=== PATIENT | male | born 1950 | race Caucasian/White ===

== ENCOUNTER → 2017-01-20 | Outpatient (CLI) | payer OTHER ==
[~2017-01-20] MED LIST: ASPI81TA28 PO; GLC/500 PO; LOSA1TAB38 PO; LPT40 PO; METO50TA16 PO; MONT1TAB5 PO; NTRSL3 UT
[2017-01-20 11:48] LABS: HEMATOCRIT 37.8 % (42-52); MEAN CELL VOLUME 92.9 fL (80-100); MEAN CORPUSCULAR HEMOGLOBIN 30.2 pg (25-34); MEAN CORPUSCULAR HGB CONC 32.5 g/dl (32-36); MEAN PLATELET VOLUME 10.9 fL (7.4-10.4); PLATELET COUNT 263 K/uL (130-400); RED BLOOD COUNT 4.07 M/uL (4.7-6.1); WHITE BLOOD COUNT 10.24 K/uL (4.8-10.8)
[2017-01-20 12:01] LABS: ALT/SGPT 27 U/L (12-78); AST/SGOT 24 U/L (15-37); BLOOD UREA NITROGEN 23 mg/dl (7-18); BUN/CREATININE RATIO 18.9 (10-20); CALCIUM 8.9 mg/dl (8.5-10.1); CARBON DIOXIDE 27 mmol/L (21-32); CHLORIDE 104 mmol/L (98-107); GLUCOSE 152 mg/dl (70-99); POTASSIUM 5.1 mmol/L (3.5-5.1); SODIUM 137 mmol/L (136-145)
== END | disposition home or self-care (01) ==
LOC: C.LABPBG 08:45
PROVIDERS: ATTEND Internal Medicine Cardiovascular Disease
DX: E78.5 Hyperlipidemia, unspecified (principal); E66.9 Obesity, unspecified; I10 Essential (primary) hypertension; I25.119 Atherosclerotic heart disease of native coronary artery with unspecified angina pectoris

== ENCOUNTER → 2017-11-13 | Outpatient (CLI) | payer OTHER ==
[~2017-11-13] MED LIST changes: +ADVIN25/60 INH; +ISOS120T5 PO; -MONT1TAB5 PO; +RANO1000 PO; +[UNRECOGNIZED DRUG - CODE] INH
[2017-11-13 13:44] LABS: HEMOGLOBIN 9.2 g/dL (14.0-18.0); MEAN CELL VOLUME 90.6 fL (80-100); MEAN CORPUSCULAR HEMOGLOBIN 28.8 pg (25-34); MEAN CORPUSCULAR HGB CONC 31.7 g/dl (32-36); MEAN PLATELET VOLUME 9.2 fL (7.4-10.4); PLATELET COUNT 561 K/uL (130-400); WHITE BLOOD COUNT 16.32 K/uL (4.8-10.8)
[2017-11-13 14:19] LABS: BLOOD UREA NITROGEN 10 mg/dl (7-18); CALCIUM 9.3 mg/dl (8.5-10.1); CARBON DIOXIDE 29 mmol/L (21-32); CREATININE 1.13 mg/dl (0.60-1.40); GLUCOSE 134 mg/dl (70-99); POTASSIUM 4.3 mmol/L (3.5-5.1); SODIUM 136 mmol/L (136-145)
== END | disposition home or self-care (01) ==
LOC: C.LAB1850 12:35
PROVIDERS: ATTEND Internal Medicine Cardiovascular Disease
DX: I10 Essential (primary) hypertension (principal); I25.10 Atherosclerotic heart disease of native coronary artery without angina pectoris; I97.89 Other postprocedural complications and disorders of the circulatory system, not elsewhere classified; E87.70 Fluid overload, unspecified

== ENCOUNTER → 2017-11-20 | Outpatient (CLI) | payer OTHER ==
[2017-11-20 12:53] LABS: BLOOD UREA NITROGEN 13 mg/dl (7-18); CARBON DIOXIDE 29 mmol/L (21-32); GLUCOSE 143 mg/dl (70-99); POTASSIUM 3.9 mmol/L (3.5-5.1); SODIUM 132 mmol/L (136-145)
== END | disposition home or self-care (01) ==
LOC: C.LAB1850 10:36
PROVIDERS: ATTEND Internal Medicine Cardiovascular Disease
DX: I25.10 Atherosclerotic heart disease of native coronary artery without angina pectoris (principal); E87.70 Fluid overload, unspecified

== ENCOUNTER → 2017-12-04 | Outpatient (CLI) | payer OTHER ==
[2017-12-04 17:16] LABS: BASO % 0.6 %; BASO ABS # 0.07 K/uL (0-0.2); EOS % 9.4 %; EOS ABS # 1.12 K/uL (0-0.5); HEMATOCRIT 35.4 % (42-52); HEMOGLOBIN 11.3 g/dL (14.0-18.0); IG# 0.07 K/uL (0.00-0.02); LYMPH % 17.1 %; LYMPH ABS # 2.03 K/uL (1.2-3.4); MEAN CELL VOLUME 90.1 fL (80-100); MEAN CORPUSCULAR HEMOGLOBIN 28.8 pg (25-34); MEAN CORPUSCULAR HGB CONC 31.9 g/dl (32-36); MEAN PLATELET VOLUME 10.2 fL (7.4-10.4); MONO % 7.3 %; MONO ABS # 0.87 K/uL (0.11-0.59); NEUT ABS # 7.71 K/uL (1.4-6.5); PLATELET COUNT 361 K/uL (130-400); RED CELL DISTRIBUTION WIDTH CV 15.2 % (11.5-14.5); RED CELL DISTRIBUTION WIDTH SD 49.8 fL (36.4-46.3); WHITE BLOOD COUNT 11.87 K/uL (4.8-10.8)
[2017-12-04 17:37] LABS: BLOOD UREA NITROGEN 16 mg/dl (7-18); CALCIUM 9.1 mg/dl (8.5-10.1); CARBON DIOXIDE 29 mmol/L (21-32); CREATININE 1.42 mg/dl (0.60-1.40); GLUCOSE 133 mg/dl (70-99); POTASSIUM 3.9 mmol/L (3.5-5.1); SODIUM 135 mmol/L (136-145)
== END | disposition home or self-care (01) ==
LOC: C.LABPBG 13:45
PROVIDERS: ATTEND Physician Assistant
DX: I10 Essential (primary) hypertension (principal); E87.70 Fluid overload, unspecified; I25.10 Atherosclerotic heart disease of native coronary artery without angina pectoris

== ENCOUNTER → 2017-12-18 | Outpatient (CLI) | payer OTHER ==
[2017-12-18 13:26] LABS: BLOOD UREA NITROGEN 10 mg/dl (7-18); CALCIUM 8.9 mg/dl (8.5-10.1); CARBON DIOXIDE 26 mmol/L (21-32); CREATININE 1.08 mg/dl (0.60-1.40); GLUCOSE 233 mg/dl (70-99); POTASSIUM 4.6 mmol/L (3.5-5.1); SODIUM 135 mmol/L (136-145)
== END | disposition home or self-care (01) ==
LOC: C.LABPBG 08:52
PROVIDERS: ATTEND Physician Assistant
DX: I10 Essential (primary) hypertension (principal)

== ENCOUNTER 2021-03-23 06:47 | Inpatient (IN) ==
--- NOTE | 2021-02-04 13:33 | PAT Medication Instructions ---
Medication Instructions Date of Service February 04, 2021 Home Medications Medication Instructions Recorded nitroglycerin 0.4 mg sublingual 0.4 mg SUBLINGUAL DIRECTED PRN 01/02/19 tablet #30 tab famotidine 20 mg tablet 20 mg PO BID #180 tab 07/20/20 lancets 33 gauge (Flora Hernandez #100 ea 08/03/20 Lancets) atorvastatin 80 mg tablet 80 mg PO HS #90 tab 08/26/20 furosemide 40 mg tablet 40 mg PO BID #180 tab 08/26/20 potassium chloride 10 mEq 10 meq PO QAM #90 tab 08/26/20 tablet,extended release metoprolol tartrate 50 mg tablet 50 mg PO BID #180 tab 08/31/20 metformin 1,000 mg tablet 1,000 mg PO BID #180 tab 09/22/20 tramadol 50 mg tablet 50 mg PO Q8H PRN #30 tab 01/12/21 blood sugar diagnostic #100 ea 01/28/21 semaglutide (Ozempic) 0.5 mg SUBCUT .weekly #1.5 ml 02/03/21 multivitamin 1 tab PO QAM acetaminophen 500 mg tablet 1,000 mg PO Q4H PRN aspirin 81 mg tablet,delayed release 81 mg PO QAM nitroglycerin 0.4 mg sublingual tablet 0.4 mg SUBLINGUAL DIRECTED PRN famotidine 20 mg tablet 20 mg PO BID atorvastatin 80 mg tablet 80 mg PO HS furosemide 40 mg tablet 40 mg PO BID potassium chloride 10 mEq tablet,extended release 10 meq PO QAM metoprolol tartrate 50 mg tablet 50 mg PO BID metformin 1,000 mg tablet 1,000 mg PO BID tramadol 50 mg tablet 50 mg PO Q8H PRN diclofenac sodium 1 % topical gel 4 g TOP BID PRN glimepiride 4 mg tablet 4 mg PO QAM semaglutide (Ozempic) 0.5 mg SUBCUT .weekly Continue as directed semaglutide (Ozempic) 0.5 mg SUBCUT .weekly nitroglycerin 0.4 mg sublingual tablet 0.4 mg SUBLINGUAL DIRECTED PRN (if needed) ASK your prescriber and surgeon aspirin 81 mg tablet,delayed release 81 mg PO QAM STOP taking 24 hours before surgery diclofenac sodium 1 % topical gel 4 g TOP BID PRN DO NOT take the morning of surgery multivitamin 1 tab PO QAM famotidine 20 mg tablet 20 mg PO BID furosemide 40 mg tablet 40 mg PO BID potassium chloride 10 mEq tablet,extended release 10 meq PO QAM metformin 1,000 mg tablet 1,000 mg PO BID glimepiride 4 mg tablet 4 mg PO QAM Take morning of surgery With a small sip of water, OTHERWISE NOTHING TO EAT OR DRINK AFTER MIDNIGHT: acetaminophen 500 mg tablet 1,000 mg PO Q4H PRN (okay to take up to 4 hours prior to surgery if needed) metoprolol tartrate 50 mg tablet 50 mg PO BID tramadol 50 mg tablet 50 mg PO Q8H PRN (okay to take up to 4 hours prior to surgery if needed) Take evening before surgery acetaminophen 500 mg tablet 1,000 mg PO Q4H PRN (if needed) famotidine 20 mg tablet 20 mg PO BID atorvastatin 80 mg tablet 80 mg PO HS furosemide 40 mg tablet 40 mg PO BID metoprolol tartrate 50 mg tablet 50 mg PO BID metformin 1,000 mg tablet 1,000 mg PO BID tramadol 50 mg tablet 50 mg PO Q8H PRN (if needed) Other Notes If you have any questions please call us at [phone] or [phone] or [phone] or [phone]
--- NOTE | 2021-02-08 08:29 | Anesthesiology Consultation ---
Date of Service February 08, 2021 Assessment & Plan (1) Encounter for pre-operative examination: - COVID screening: Per assessment on 02/08: Travel screen negative, no known COVID-19 positive contacts or current COVID-19 related symptoms. Patient vacc inated. Surgeon arranging preop COVID testing. Awaiting results. - Check BSG AM DOS Chart Review Chart Review: Acceptable Risk for Surgery (pending surgeon-ordered PCP and cardiology preop evaluations) and Patient seen in Pre Admission Testing Teaching & Discussion Pre-Anesthesia Teaching/Discussion Notes: Instructed NPO after midnight before surgery,except medications with 15 cc of water. Medication instructions provided according to the PAT guidelines. History Surgery Operation Date: 03/01/21 07:45 Proposed Procedures p L4-S1 Decompression Fusion; SPINAL CORD MONITORING - Zeeshan Elizabeth DO Height/Weight Height: 5 ft 4 in Weight: 114.2 kg Allergies Allergy/AdvReac Type Severity Reaction Status Date / Time MARK Inhibitors Allergy Mild Cough Verified 02/02/21 10:54 Medications Home Medications Medication Instructions Recorded Confirmed Last Taken multivitamin 1 tab PO QAM 05/06/18 02/02/21 10/15/19 acetaminophen 500 mg tablet 1,000 mg PO Q4H PRN tab 12/31/18 02/02/21 02/19/19 aspirin 81 mg tablet,delayed 81 mg PO QAM tab 12/31/18 02/02/21 10/15/19 release nitroglycerin 0.4 mg sublingual 0.4 mg SUBLINGUAL DIRECTED PRN 01/02/19 02/02/21 Unknown tablet #30 tab famotidine 20 mg tablet 20 mg PO BID #180 tab 07/20/20 02/02/21 Unknown lancets 33 gauge (OneTouch Delica #100 ea 08/03/20 01/12/21 Unknown Lancets) atorvastatin 80 mg tablet 80 mg PO HS #90 tab 08/26/20 02/02/21 Unknown furosemide 40 mg tablet 40 mg PO BID #180 tab 08/26/20 02/02/21 Unknown potassium chloride 10 mEq 10 meq PO QAM #90 tab 08/26/20 02/02/21 Unknown tablet,extended release metoprolol tartrate 50 mg tablet 50 mg PO BID #180 tab 08/31/20 02/02/21 Unknown metformin 1,000 mg tablet 1,000 mg PO BID #180 tab 09/22/20 02/02/21 Unknown tramadol 50 mg tablet 50 mg PO Q8H PRN #30 tab 01/12/21 02/02/21 Unknown blood sugar diagnostic #100 ea 01/28/21 Unknown diclofenac sodium 1 % topical gel 4 g TOP BID PRN 02/02/21 02/02/21 Unknown glimepiride 4 mg tablet 4 mg PO QAM 02/02/21 02/02/21 Unknown semaglutide (Ozempic) 0.5 mg SUBCUT .weekly #1.5 ml 02/03/21 Unknown Past Medical History Medical History Anemia Chronic with baseline hgb 11-12 range per chart review Asthma No inhaler/recent issues CAD in [place] artery S/P CABG x2 (2018) Follows with cardiology (Dr. Romo) Chronic diastolic congestive heart failure Diabetes mellitus Diverticulosis Dyslipidemia Gastroesophageal reflux Hypertension Morbid obesity with BMI of 40.0-44.9, adult Postoperative atrial fibrillation S/P CABG (2018) Sleep apnea No device Exercise / Class Metabolic Activity III < 4 Walking/Shop/Light housework (Reports No CP or SOB with 1 FS but does indicate decreased activity in setting of worsening back pain) Past Family History Family History Father Diabetes Coronary heart disease Heart disease Myocardial infarction Hypertension Cancer Mother Diabetes Coronary heart disease Dementia Heart disease Myocardial infarction Hypertension Cancer Brother Prostate cancer Bladder cancer Daughter Ovarian cancer 2 daughters Other No family history of adverse response to anesthesia Denies family history of Breast cancer Colorectal cancer Past Surgical History Surgical History History of cardiac cath x2 > no stents, CABG x2 (2018) History of colonoscopy with polypectomy History of coronary artery bypass graft x 2 2018 ([facility]) History of tooth extraction S/P cholecystectomy Past Anesthesia History No Hx of Anesthesia Complications and No Family Hx of Anesthesia Complications History of PONV No Hx of PONV and No Hx of Motion Sickness Social History Smoking Status: Never smoker Do You Dip or Chew Tobacco: No Hx Alcohol Use: No Hx Substance Use: No substance use type: does not use Review of Systems Patient denies chest pain, shortness of breath, dyspnea on exertion, fever, chills, cough, wheezing, palpitations. Physical Exam Vital Signs VITALS BP 136/79 P 70 TEMP 98.1 SP02 97%RA RESP 16 PHYSICAL Full cervical extension range of motion. Full TMJ range of motion. TMD 4 finger breaths Mallampati Score 3 Dentition: edentulous Lungs: clear throughout to auscultation Cardiac: regular rate and rhythm, no murmurs noted, distant heart sounds Spine: normal Carotid arteries: negative bruit Extremities: no edema Short, thick neck Lab Results Anesthesia Preop Results Results Anesthesia Widget: WBC 10.61 K/uL (4.8-10.8) 02/08/21 Hgb 12.9 g/dL (14.0-18.0) L 02/08/21 Hct 39.1 % (42-52) L 02/08/21 Plt 307 K/uL (130-400) 02/08/21 Na 137 mmol/L (136-145) 02/08/21 K 3.8 mmol/L (3.5-5.1) 02/08/21 Cl 101 mmol/L (98-107) 02/08/21 CO2 27 mmol/L (21-32) 02/08/21 BUN 15 mg/dl (7-18) 02/08/21 Creat 1.19 mg/dl (0.6-1.4) 02/08/21 Glucose Level 181 mg/dl (70-99) H 02/08/21 PT 10.6 Seconds (9.0-12.0) 02/08/21 PTT 25.9 Seconds (21.0-31.0) 02/08/21 INR 1.0 (0.9-1.1) 02/08/21 Urine Color Yellow 02/08/21 Urine Appearance Clear (Clear) 02/08/21 Urine pH 8.0 (4.5-7.5) H 02/08/21 Urine Specific [place] 1.015 (1.000-1.030) 02/08/21 Urine Protein Negative (Negative) 02/08/21 Urine Glucose (UA) Trace (Negative) H 02/08/21 Urine Ketones Negative (Negative) 02/08/21 Urine Blood Negative (Negative) 02/08/21 Urine Nitrite Negative (Negative) 02/08/21 Urine Bilirubin Negative (Negative) 02/08/21 Urine Urobilinogen Negative (Negative) 02/08/21 Urine Leukocyte Esterase Negative (Negative) 02/08/21 Blood Type O Positive 02/08/21 Antibody Screen NEGATIVE 02/08/21 Testing Laboratory Results 10/22/20 HGBA1C 7.3% Electrocardiogram Date: 02/08/21 NSR at 71bpm. unconfirmed report. Chest X-Ray Date: 02/08/21 FINDINGS: Mediastinal wires are noted. Cardiomegaly is unchanged. There is no evidence for pulmonary edema. No pneumothorax or pleural effusion is noted. There is no consolidation. The appearance of the chest is unchanged. IMPRESSION: No acute cardiopulmonary findings. Cardiomegaly.
[~2021-03-23 06:47] MED LIST changes: +ACETAMINOPHEN 500 MG TAB PO SCH; -ADVIN25/60 INH; -ASPI81TA28 PO; +CeleBREX 200 MG CAP PO SCH; +GABAPENTIN 300 MG CAP PO SCH; -GLC/500 PO; -ISOS120T5 PO; -LOSA1TAB38 PO; -LPT40 PO; +LR 15ML/HR IV SCH; -METO50TA16 PO; -NTRSL3 UT; -RANO1000 PO; -[UNRECOGNIZED DRUG - CODE] INH
[2021-03-23] MEDS ORDERED: ONDANSETRON INJ 2 MG/ML 2 ML VIAL ONE (10:12)
[2021-03-23] MEDS ORDERED: fentaNYL citrate 100 MCG/2 ML VIAL ONE ×2 (10:12→13:07)
[2021-03-23] MEDS ORDERED: PROPOFOL IV EMULSION 10 MG/ML 20 ML VIAL IV ONE (10:12)
[2021-03-23] MEDS ORDERED: LIDOCAINE 2% 2 ML VIAL/AMP(20MG/ML) INFIL ONE (10:12)
[2021-03-23] MEDS ORDERED: MIDAZOLAM HCL 1 MG/ML 2ML VIAL ONE (10:12)
[2021-03-23] MEDS ORDERED: ONDANSETRON INJ 2 MG/ML 2 ML VIAL IV PRN ×2 (10:16→15:14)
[2021-03-23] MEDS ORDERED: ePHEDrine sulfate 50 MG/ML AMP IV PRN (10:16)
[2021-03-23] MEDS ORDERED: fentaNYL citrate 100 MCG/2 ML VIAL IV PRN (10:16)
[2021-03-23] MEDS ORDERED: ATROPINE SULFATE 0.1 MG/ML 10ML SYR IV PRN (10:16)
[2021-03-23] MEDS ORDERED: PROMETHAZINE HCL 6.25 MG in SODIUM CHLORIDE 0.9% 50 ML IV PRN (10:16)
[2021-03-23] MEDS ORDERED: HYDROmorphone INJ 2 MG/ML SYR/VIAL IV PRN (10:16)
--- NOTE | 2021-03-23 10:52 | History & Physical Bridge Note ---
Date of Service March 23, 2021 History & Physical Bridge Note I have examined the patient, reviewed the History & Physical and in the interval since the performance of the History & Physical I have noted the following changes of clinical significance: no changes noted
--- NOTE | 2021-03-23 10:53 | History & Physical Report ---
Date of Service March 23, 2021 Assessment & Plan (1) Lumbar spinal stenosis: Plan: L4-S1 decompression fusion History of Present Illness Chief Complaint: Back and bilateral leg pain Primary Care Provider: Katlin Preston DO This is a 70-year-old male presents with marked decline in status with chronic persistent back and bilateral leg pain. Failing course of nonoperative care is here for surgical intervention. Allergies Allergy/AdvReac Type Severity Reaction Status Date / Time MARK Inhibitors Allergy Mild Cough Verified 03/23/21 07:38 Home Medications Medication Instructions Recorded Confirmed Type multivitamin 1 tab PO QAM 05/06/18 03/23/21 History acetaminophen 500 mg tablet 1,000 mg PO Q4H PRN tab 12/31/18 03/23/21 History aspirin 81 mg tablet,delayed 81 mg PO QAM tab 12/31/18 03/23/21 History release nitroglycerin 0.4 mg sublingual 0.4 mg SUBLINGUAL DIRECTED PRN 01/02/19 03/23/21 Rx tablet #30 tab famotidine 20 mg tablet 20 mg PO BID #180 tab 07/20/20 03/23/21 Rx lancets 33 gauge (OneTouch Delica #100 ea 08/03/20 02/12/21 Rx Lancets) atorvastatin 80 mg tablet 80 mg PO HS #90 tab 08/26/20 03/23/21 Rx furosemide 40 mg tablet 40 mg PO BID #180 tab 08/26/20 03/23/21 Rx potassium chloride 10 mEq 10 meq PO QAM #90 tab 08/26/20 03/23/21 Rx tablet,extended release metoprolol tartrate 50 mg tablet 50 mg PO BID #180 tab 08/31/20 03/23/21 Rx metformin 1,000 mg tablet 1,000 mg PO BID #180 tab 09/22/20 03/23/21 Rx blood sugar diagnostic #100 ea 01/28/21 02/12/21 Rx diclofenac sodium 1 % topical gel 4 g TOP BID PRN 02/02/21 03/23/21 History glimepiride 4 mg tablet 4 mg PO QAM 02/02/21 03/23/21 History semaglutide (Ozempic) 0.5 mg SUBCUT .weekly #1.5 ml 02/03/21 03/23/21 Rx tramadol 50 mg tablet 50 mg PO Q8H PRN #30 tab 03/09/21 03/23/21 Rx Past Med/Surg History Medical History Anemia Asthma CAD in [place] artery Chronic diastolic congestive heart failure Diabetes mellitus Diverticulosis Dyslipidemia Gastroesophageal reflux History of colon polyps Hypertension Lumbar spinal stenosis Morbid obesity with BMI of 40.0-44.9, adult Postoperative atrial fibrillation Sleep apnea Surgical History History of cardiac cath History of colonoscopy with polypectomy History of coronary artery bypass graft x 2 (2018) History of tooth extraction S/P cholecystectomy Family History Father Diabetes Coronary heart disease Heart disease Myocardial infarction Hypertension Cancer Mother Diabetes Coronary heart disease Dementia Heart disease Myocardial infarction Hypertension Cancer Brother Prostate cancer Bladder cancer Daughter Ovarian cancer Other No family history of adverse response to anesthesia Denies family history of Breast cancer Colorectal cancer Social History Smoking Status: Never smoker Second Hand Exposure: Yes (work environment); Do You Dip or Chew Tobacco: No; Hx Alcohol Use: No Hx Substance Use: No Preferred Language: Luxembourgish Communication Ability: Effective Visual Impairment: No Limitations Hearing Ability: Hard of Hearing Back Feeder Plywood Layup Line Required: No Beliefs That Will Affect Care: None marital status: Current Living Situation: Spouse current occupational status: retired current occupation: Retired; 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) Vital Signs (Past 12 Hours) Vital Signs Temp Pulse Resp BP Pulse Ox 03/23/21 07:52 36.8 C 76 20 120/63 95
[2021-03-23] MEDS ORDERED: BUPIVACAINE 0.5 % 5 MG/1 ML MPF 30ML VIAL ONE (10:59)
[2021-03-23] MEDS ORDERED: EPINEPHrine INJ 1 MG/ML AMP ONE (10:59)
[2021-03-23] MEDS ORDERED: SUGAMMADEX SODIUM 200 MG/2 ML VIAL IV ONE (12:13)
[2021-03-23] MEDS ORDERED: SUCCINYLCHOLINE CHLORIDE 20 MG/ML 10 ML VIAL IV ONE (12:13)
[2021-03-23] MEDS ORDERED: ROCURONIUM BROMIDE 10 MG/ML 5 ML VIAL IV ONE (12:13)
[2021-03-23] MEDS ORDERED: DEXAMETHASONE SOD INJ 4 MG/ML VIAL ONE (12:24)
[2021-03-23] MEDS ORDERED: ePHEDrine sulfate 50 MG/ML AMP ONE (12:24)
[2021-03-23] MEDS ORDERED: NEOSTIGMINE METHYLSULFATE 1 MG/ML 10ML VIAL ONE (13:07)
[2021-03-23] MEDS ORDERED: GLYCOPYRROLATE 0.2 MG/ML VIAL ONE (13:07)
[2021-03-23] MEDS ORDERED: FLOSEAL HEMOSTATIC MATRIX 10ML TOP ONE (13:31)
--- NOTE | 2021-03-23 13:42 | Operative Report ---
Post Operative Report Pre & Post Diagnosis Operation Date: 03/01/21 07:45 <No data on this case meets the specified criteria> Operation Date: 03/23/21 09:05 Pre-Op Diagnosis: Lumbar spinal stenosis with spondylolisthesis Morbid obesity Post-Op Diagnosis: Same I identified the patient and participated in the time-out.: Yes Procedure Operation Date: 03/01/21 07:45 <No data on this case meets the specified criteria> Operation Date: 03/23/21 09:05 Actual Procedures #1 lumbar decompression bilateral medial facetectomies and foraminotomies L3-L4 L4-5 L5-S1. #2 posterior spinal fusion L4-5 L5-S1. #3 placement posterior instrumentation L4-5 L5-S1. #4 interbody fusion L4-5 L5-S1. #5 placement of titanium globus cage 12 x 26 mm at L5-S1 and 13 x 26 mm at L for L5. #6 placement locally harvested morselized autograft in the posterior gutters. #7 placement of infuse collagen sponge, master graft in the posterior lateral gutters and I factor interbody space. Surgeon Zeeshan Elizabeth, DO Refrigeration Unit Repairer Prabha Reese Estimated Blood Loss 150 Findings See Below The patient is 5 foot 4 inches tall weighing over 115 kg with a BMI in excess of 43. The patient's body habitus did contribute to significant technical difficulty and at least 50% increased operative time. Specimens None Indications This is a 70-year-old male presents with marked decline in status is here for the above-mentioned procedure. Description of Procedure Patient was met with identified informed consent obtained. Patient was then taken to the operative suite underwent intubation placed in the prone position on the Ernst table on top of the Pranav frame. All bony prominences well- padded eyes inspected to ensure no external pressure placed upon the bed this point the lumbar spine was prepped and draped in normal sterile fashion. Sharp dissection with the assistance of Bovie cautery was performed until exposing the lamina and transverse processes of L4-L5 and the sacral ala bilaterally. From caudal cephalad fashion complete laminectomy of L5 L4 impression laminectomy of L3 was performed including bilateral medial facetectomies and foraminotomies addressing severe spinal stenosis. After this complete pedicle screws were placed in L4-L5 and S1 levels bilaterally with assistance of fluoroscopy and appropriately sized kailyn placed. By way of a transforaminal approach on right a complete discectomy of L4-5 S1 was performed endplates curetted to subcortical being bone and a 12 x 26 mm titanium cage filled with I factor tapped in position. Then proceeded to L for L5 and again by way of a transfemoral approach on right a complete discectomy was performed endplates curetted to subcortical bleeding bone and a 13 x 26 mm titanium cage filled with I factor tapped in position. The rods then compressed locked into final position bilaterally. The transverse processes of L for L5 and sacral ala burred to subcortically bone. Infuse collagen sponge master graft and local autograft was placed in the posterior gutters. 15 round ALLIE drain inserted. The incision was then closed with 1 Vicryl in the fascia 2-0 Vicryl subcutaneously and 4 Monocryl for final skin closure. Steri-Strip sterile dressings placed. Patient waken taken to PACU stable condition. Please note spinal cord monitoring visualized at the procedure no changes noted. Lastly Prabha Reese was present at the entire procedure all the patient positioning complex portions of the surgery and final skin closure. I attest to the content of the Intraoperative Record and any orders documented therein. Any exceptions are noted below.
--- NOTE | 2021-03-23 13:49 | Fluoroscopy Report ---
FL lumbar spine 2-3V CLINICAL HISTORY: L4-S1 D/F/I COMPARISON STUDY: None FLUOROSCOPY TIME: 33 seconds. FLUOROSCOPIC IMAGES: 3 FINDINGS: The patient is status post placement of interpedicular screw and rods from L4 through S1. D isc spacers are also in place. There is evidence for previous laminectomies at L4 and L5. IMPRESSION: Status post laminectomies and internal fixation. ACT 112: Negative or not required by law. Electronically signed by: Tacho Villa M.D. 03/23/2021 1:48 PM
--- NOTE | 2021-03-23 14:51 | Anesthesiology Progress Note ---
Date of Service March 23, 2021 Anesthesia Post Procedure Vital Signs Vital Signs: Temp Pulse Pulse Resp BP BP Pulse Ox 03/23/21 14:40 36.2 C L 59 L 17 105/60 92 03/23/21 14:30 59 L 17 111/60 93 03/23/21 14:20 63 15 115/60 93 03/23/21 14:10 69 13 110/62 95 03/23/21 14:04 36.2 C L 75 16 112/67 94 03/23/21 07:52 36.8 C 76 20 120/63 95 Pain Intensity Back: Pain Intensity: 2 Transfer of Care Handoff Completed per policy Notes Mental Status: alert / awake / arousable Patient Amnestic to Procedure: Yes Nausea / Vomiting: adequately controlled Pain: adequately controlled Airway Patency, RR, SpO2: stable & adequate BP & HR: stable & adequate Hydration State: stable & adequate Anesthetic Complications: no major complications apparent
[2021-03-23] MEDS ORDERED: PHARMACY GLYCEMIC MGMT CONSULT PRN (15:14)
[2021-03-23] MEDS ORDERED: SOD PHOSPHATE/SOD BIPHOSPHATE ENEMA 132 ML BTL PR PRN (15:14)
[2021-03-23] MEDS ORDERED: ACETAMINOPHEN 1,000 MG/100 ML VIAL IV PRN (15:14)
[2021-03-23] MEDS ORDERED: METOCLOPRAMIDE HCL INJ 5 MG/ML 2 ML VIAL IV PRN (15:14)
[2021-03-23] MEDS ORDERED: ACETAMINOPHEN 500 MG TAB PO PRN (15:14)
[2021-03-23] MEDS ORDERED: oxyCODONE HCL IR 5 MG TAB (IMMEDIATE RELEASE) PO PRN (15:14)
[2021-03-23] MEDS ORDERED: DO NOT ADMINISTER PNEUMOCOCCAL VACCINE PRN (15:14)
[2021-03-23] MEDS ORDERED: ALUMINUM/MAGNESIUM SUSP 30 ML UDC PO PRN (15:14)
[2021-03-23] MEDS ORDERED: HYDROmorphone INJ 1 MG/ML SYRINGE IV PRN (15:14)
[2021-03-23] MEDS ORDERED: FAMOTIDINE 20 MG TAB PO PRN (15:14)
[2021-03-23] MEDS ORDERED: LORazepam 0.5 MG/1 ML VIAL IV PRN (15:14)
[2021-03-23] MEDS ORDERED: ACETAMINOPHEN HOME PACK 500 MG TABLET PO PRN (15:14)
[2021-03-23] MEDS ORDERED: PROMETHAZINE HCL 12.5 MG in SODIUM CHLORIDE 0.9% 50 ML IV PRN (15:14)
[2021-03-23] MEDS ORDERED: NITROGLYCERIN SL 0.4 MG/TAB TAB SL PRN (15:14)
[2021-03-23] MEDS ORDERED: MAGNESIUM HYDROXIDE SUSP 30 ML UDC PO PRN (15:14)
[2021-03-23] MEDS ORDERED: NALOXONE HCL 0.4 MG/1 ML VIAL/CARP IV PRN (15:14)
[2021-03-23] MEDS ORDERED: DO NOT ADMINISTER FLU VACCINE PRN (15:14)
[2021-03-23] MEDS ORDERED: LORazepam 0.5 MG TAB PO PRN (15:14)
[2021-03-23] MEDS ORDERED: bisacodyL 10 MG SUPP PR PRN (15:14)
[2021-03-23] MEDS ORDERED: diphenhydrAMINE Capsule 25 MG CAP PO PRN (15:14)
[2021-03-23] MEDS ORDERED: HYDROmorphone INJ 0.5 MG/0.5 ML SYR IV PRN (15:14)
[2021-03-23] MEDS ORDERED: hydrOXYzine HCl 25 MG TAB PO PRN (15:14)
[2021-03-23] MEDS ORDERED: ONDANSETRON 4 MG OD TAB PO PRN (15:14)
[2021-03-23] MEDS: SODIUM CHLORIDE 0.9% 1000ML 1,000 ML IV SCH ×2 (15:20→21:37)
[2021-03-23] MEDS ORDERED: GLUCAGON FOR INJ 1 MG VIAL IM PRN (16:15)
[2021-03-23] MEDS ORDERED: GLUCOSE 10 TABS/TUBE PO PRN (16:15)
[2021-03-23] MEDS ORDERED: CARBOHYDRATES FOR HYPOGLYCEMIA PO PRN (16:15)
[2021-03-23] MEDS ORDERED: DEXTROSE 50% 50 ML SYRINGE IV PRN (16:15)
[2021-03-23] MEDS ORDERED: GLUCOSE 40% GEL 15 GM TUBE PO PRN (16:15)
[2021-03-23] MEDS ORDERED: NovoLIN-N (NPH) PER UNIT CHARGE SQ SCH (16:30)
[2021-03-23] MEDS: INSULIN ASPART 100 UNITS/ML 3 ML PEN SC SCH ×2 (18:01→21:28)
[2021-03-23] MEDS: ceFAZolin 2000MG 2,000 MG/15 ML SYR IV SCH (19:55)
[2021-03-23] MEDS: DOCUSATE SODIUM/SENNA 50/8.6MG TAB PO SCH (21:23)
[2021-03-23] MEDS: METOPROLOL TARTRATE 50 MG TAB PO SCH (21:24)
[2021-03-23] MEDS: FUROSEMIDE 40 MG TAB PO SCH (21:25)
[2021-03-23] MEDS: FAMOTIDINE 20 MG TAB PO SCH (21:26)
[2021-03-23] MEDS: ATORVASTATIN 40 MG TAB PO SCH (21:27)
[2021-03-24] MEDS: SODIUM CHLORIDE 0.9% 1000ML 1,000 ML IV SCH (03:55)
[2021-03-24] MEDS: ceFAZolin 2000MG 2,000 MG/15 ML SYR IV SCH (03:55)
[2021-03-24 06:31] LABS: Basophils # (auto) 0.04 K/uL (0-0.2); Basophils % (auto) 0.3 %; Eosinophils # (auto) 0.04 K/uL (0-0.5); Eosinophils % (auto) 0.3 %; Hematocrit (blood only) 28.7 % (42-52); Hemoglobin 9.3 g/dL (14.0-18.0); Immature Granulocytes # (auto) 0.04 K/uL (0.00-0.02); Immature Granulocytes % (auto) 0.3 %; Lymphocytes # (auto) 1.22 K/uL (1.2-3.4); Lymphocytes % (auto) 7.9 %; Mean Corpuscular Hemoglobin 28.3 pg (25-34); Mean Corpuscular Hgb Conc 32.4 g/dL (32-36); Mean Corpuscular Volume 87.2 fL (80-100); Monocytes # (auto) 1.84 K/uL (0.11-0.59); Monocytes % (auto) 11.9 %; Neutrophils # (auto) 12.31 K/uL (1.4-6.5); Neutrophils % (auto) 79.3 %; Platelet Count 251 K/uL (130-400); RDW Coefficient of Variation 15.2 % (11.5-14.5); RDW Standard Deviation 48.8 fL (36.4-46.3); Red Blood Count 3.29 M/uL (4.7-6.1); White Blood Count 15.49 K/uL (4.8-10.8)
[2021-03-24 07:01] LABS: BUN Creatinine Ratio 13.7 (10-20); Calcium 8.4 mg/dl (8.5-10.1); Creatinine Clr Calc Pharmacy 72.4 ml/min; Est GFR (African American) 76.7 ml/min; Est GFR (Non-African American) 66.2 ml/min
[2021-03-24 07:28] LABS: Estimated Average Glucose 154 mg/dl
[2021-03-24] MEDS: POLYETHYLENE (MIRALAX) 17 GM PACK PO SCH ×3 (08:29→18:27)
[2021-03-24] MEDS: ASPIRIN 81 MG ECTAB PO SCH (08:34)
[2021-03-24] MEDS: METOPROLOL TARTRATE 50 MG TAB PO SCH ×2 (08:34→21:19)
[2021-03-24] MEDS: MULTIVITAMIN TAB PO SCH (08:34)
[2021-03-24] MEDS: POTASSIUM CHLORIDE 10 MEQ TABCR PO SCH (08:34)
[2021-03-24] MEDS: FUROSEMIDE 40 MG TAB PO SCH ×2 (08:35→21:20)
[2021-03-24] MEDS: FAMOTIDINE 20 MG TAB PO SCH ×2 (08:36→21:20)
[2021-03-24] MEDS: INSULIN ASPART 100 UNITS/ML 3 ML PEN SC SCH ×4 (08:39→21:21)
[2021-03-24] MEDS ORDERED: GLIMEPIRIDE 2 MG TAB PO SCH (09:00)
--- NOTE | 2021-03-24 12:16 | Orthopedic Progress Note ---
Date of Service March 24, 2021 Assessment & Plan (1) Lumbar spinal stenosis: Plan: This time we will continue physical therapy monitor his ALLIE output hopefully discharge home tomorrow. Admission and Anticipated Discharge Date Admission Date: March 23, 2021 Subjective Back pain controlled leg pain improved Physical Exam Physical Exam: Patient has good strength testing is ambulating a steady gait. Is comfortable. Results & Data ([facility]) Vital Signs (Past 12 Hours) Vital Signs Temp Pulse Resp BP Pulse Ox 03/24/21 10:06 96 03/24/21 06:50 37.1 C 82 14 104/48 L 97
--- NOTE | 2021-03-24 15:30 | Pharmacy Report ---
Pharmacy Glycemic Short Note 2 - Date of Service March 24, 2021 - Glycemic Short BSG Results (Last 24 hours): 03/23/21 03/23/21 03/24/21 16:47 21:20 05:54 Glucose 142 H POC Glucose 157 H 167 H 03/24/21 03/24/21 07:42 11:28 Glucose POC Glucose 134 H 160 H OUTPATIENT ANTIDIABETIC REGIMEN: * Amaryl, metformin, ozempic * A1c ~7% ASSESSMENT: * 70 year old now s/p lumbar surgery. Patient received only 4 units of insulin yesterday, despite receiving steroids * Plan to continue only novolog for now PLAN FOR INPATIENT GLYCEMIC CONTROL: * Hold outpatient oral diabetes medications * Basal insulin * Lantus - hold * Bolus insulin * NovoLog per scale ACHS or Q6hrs while NPO * Goal Range: Low 110 mg/dL - High 140 mg/dL * Correction Factor: 15 mg/dL/unit * Nutritional / Prandial insulin per carb ratio of 1 unit per 5 grams CHO consumed PLAN FOR DISCHARGE: * A1c 7.0 - at goal, reasonable to continue home diabetic regimen on discharge as long as no contraindications present
[2021-03-24] MEDS: traMADol HCL 50 MG TABLET PO PRN (18:32)
[2021-03-24] MEDS: ATORVASTATIN 40 MG TAB PO SCH (21:18)
[2021-03-24] MEDS: DOCUSATE SODIUM/SENNA 50/8.6MG TAB PO SCH (21:21)
[2021-03-25] MEDS: POLYETHYLENE (MIRALAX) 17 GM PACK PO SCH ×3 (00:03→11:38)
[2021-03-25] MEDS ORDERED: metFORMIN HCL 500 MG TAB PO SCH (08:00)
[2021-03-25] MEDS: METOPROLOL TARTRATE 50 MG TAB PO SCH (08:07)
[2021-03-25] MEDS: FAMOTIDINE 20 MG TAB PO SCH (08:07)
[2021-03-25] MEDS: MULTIVITAMIN TAB PO SCH (08:08)
[2021-03-25] MEDS: FUROSEMIDE 40 MG TAB PO SCH (08:08)
[2021-03-25] MEDS: ASPIRIN 81 MG ECTAB PO SCH (08:08)
[2021-03-25] MEDS: INSULIN ASPART 100 UNITS/ML 3 ML PEN SC SCH ×2 (08:09→11:35)
[2021-03-25] MEDS: traMADol HCL 50 MG TABLET PO PRN (09:11)
[2021-03-25] MEDS: POTASSIUM CHLORIDE 10 MEQ TABCR PO SCH (09:12)
--- NOTE | 2021-03-25 12:30 | Discharge Summary ---
Date of Service March 25, 2021 Admission HPI Per Admitting Provider This is a 70-year-old male presents with marked decline in status with chronic persistent back and bilateral leg pain. Failing course of nonoperative care is here for surgical intervention. Principal Diagnosis Lumbar spinal stenosis with neurogenic claudication Discharge Data Allergies Allergy/AdvReac Type Severity Reaction Status Date / Time MARK Inhibitors Allergy Mild Cough Verified 03/23/21 07:38 Consultations 03/23/21 15:14 Consult Hospitalist Routine Procedures Performed Operation Date: 03/01/21 07:45 <No data on this case meets the specified criteria> Operation Date: 03/23/21 09:05 Actual Procedures p L4-S1 Decompression Fusion, Spinal Cord Monitoring(Not Applicable) - Zeeshan Elizabeth DO Ordered Studies 03/23/21 09:05 [place] lumbar spine 2-3V Routine Hospital Course (1) Lumbar spinal stenosis: Patient went lumbar decompression fusion tolerated this well was taken to the floor postoperative. Postop day 1 is up and ambulating progressive postop day #2. Leg pain markedly improved. X strength testing. ALLIE drain decreasing appropriately. Subsequent discharge home. Discharge orders instructions from the chart for further review. Total Time Total Time Spent Total Time Spent (In Minutes): 20 minutes Discharge Plan Discharge Items Patient Disposition: Home - Self-Care Reason For Visit: Spinal stenosis, Lumbar Region with Neurogenic Cla Discharge Diagnosis: Lumbar spinal stenosis with neurogenic claudication Activity: As commented below Non-emergency contact: Primary Care Provider Call non-emergency contact if: you have any medication questions Follow-up/Referrals: Katlin Preston DO [Primary Care Provider] - Diet: Regular Addtl Attending Provider Instructions: ACTIVITY RECOMMENDATIONS: SELF CARE INSTRUCTIONS AFTER THORACIC/LUMBAR FUSIONS 1. You may walk to your tolerance. It is good exercise for your legs and back. Expect some back and intermittent leg aches and pains. 2. You may perform "counter-top" level activities (make a sandwich, starr with a project, etc.). 3. No bending or lifting of more than 10 pounds or back twisting of any nature (roll like a log when turning in bed). 4. You may ride in a car for 20-30 minutes at a time. No driving until after your first visit with your doctor. 5. Frequent changes of position and restricting sitting to 30 minutes at a time will help limit the amount of back spasms and stiffness you may experience. 6. You may discontinue the use of ambulatory aids (cane, crutches, etc.) once your strength and confidence allow. 7. You may technical intern the shower and let water strike your incision when you arrive home at least once daily. Do not take a tub bath, sit in a hot tub or go into a swimming pool until after your first recheck in the office. SPECIAL CARE INSTRUCTIONS: VERY IMPORTANT TO READ AND REVIEW A. Your surgical incision has been closed with a cosmetic suture under the skin that will dissolve in about 6 weeks. In 14 days, you can use a pair of clean scissors and cut the suture that is left outside of the skin at the ends of your incision. 1. The small skin tapes can be removed 7 days after surgery if they have not fallen off by that point. 2. You may keep the wound open to air as much as possible to promote healing after post-op day number 5 unless told otherwise by your doctor. 3. If you think the wound looks like it is becoming infected (redness or worsening drainage) and/or you are experiencing fever, chill or worsening back pain and muscle spasms, contact the office so that we may evaluate you as soon as possible. B. Complications are uncommon, but please contact us if you have any signs or symptoms of: 1. wound infection (fever higher than 102.5 degrees F, redness, separation of wound, drainage, or increasing pain from the incision) 2. blood clots in legs (pain, swelling, redness and warmth in legs) 3. urinary tract infection (fever higher than 102.5 degrees F, burning upon urination or increased frequency of urination) 4. nerve problems (inability to walk on your toes or heels, numbness, loss of bowel or bladder control) 5. any other symptoms that concern you C. Please call the office at if you have any concerns or questions about your operation or recovery. D. No smoking! Smoking drastically decreases the chance of a solid fusion. E. Do not take any anti-inflammatory medications (Indocin, Advil, Motrin, Aspirin, Naprosyn, etc.) as these may inhibit the chance of a solid fusion. Tylenol is okay to take for pain. MANAGING PAIN AFTER SPINAL SURGERY 1. Narcotic medication is intended for short-term use and will be provided for surgical pain. Surgical pain usually lasts for a period of 4-6 weeks. Narcotic medication includes Percocet, Vicodin, Darvocet, Tylenol #3 or Lortab. 2. Longer-term pain is more appropriately treated with non-narcotic medication such as Tylenol ES. 3. Muscle spasm is not appropriately treated with narcotics. Muscle relaxers such as Soma, Flexeril or Skelaxin can be used along with Tylenol ES. 4. Remember that we all live with some "aches and pains". This is not unusual or uncommon after an injury or as we get older. a. Back pain is expected and may include muscle spasms for 4 to 6 weeks after surgery. The pain should gradually improve. If the pain worsens for no apparent reason, please contact the office. b. Intermittent leg pain may also be experienced and should not be concerned about unless it worsens for no apparent reason. If so, please contact the office. 5. We will provide appropriate medication within the normal guidelines of their prescribed use. We will also be very cautious and aware of potential abuse and extended duration of patients' medication needs. a. Pain medications are for your comfort and to assist with sleep and rest so that the tissue can heal. They are not provided in order to return to normal activity and should not be used through the day. To do so or worsening pain at night can result from ongoing tissue damage and development of tolerance to the prescribed medicine. 6. Please allow 2-3 days to process refills. Prescriptions will not be mailed but must be picked up at the office. FOLLOW UP VISIT: Keep your scheduled follow-up appointment. Any questions, please call the office at . Pending Studies at Discharge: No Stand-Alone Forms: My [facility] [employer], Smoking Cessation Medications and DC Order Prescriptions: New oxycodone 5 mg tablet 5 mg PO Q6H PRN (Reason: pain, severe) Qty: 30 RF: 0 tramadol 50 mg tablet 50 mg PO Q6H PRN (Reason: pain, moderate) Qty: 30 RF: 0 Continued famotidine 20 mg tablet 20 mg PO BID Qty: 180 RF: 3 (DME) lancets [OneTouch Delica Lancets] 33 gauge misc See Dose Instructions .ROUTE .MEDSUPPLY Qty: 100 RF: 5 atorvastatin 80 mg tablet 80 mg PO HS Qty: 90 RF: 3 furosemide 40 mg tablet 40 mg PO BID Qty: 180 RF: 3 potassium chloride 10 mEq tablet extended release 10 meq PO QAM Qty: 90 RF: 3 metoprolol tartrate 50 mg tablet 50 mg PO BID Qty: 180 RF: 3 metformin 1,000 mg tablet 1,000 mg PO BID Qty: 180 RF: 1 (DME) blood sugar diagnostic Strip See Dose Instructions .ROUTE .MEDSUPPLY Qty: 100 RF: 3 Ozempic 0.25 mg or 0.5 mg(2 mg/1.5 mL) pen injector 0.5 mg subcut .weekly Qty: 1.5 RF: 3 tramadol 50 mg tablet 50 mg PO Q8H PRN (Reason: pain) Qty: 30 RF: 0 acetaminophen 500 mg tablet 1,000 mg PO Q4H PRN (Reason: Pain) RF: 0 nitroglycerin 0.4 mg tablet, sublingual 0.4 mg Sublingual DIRECTED PRN (Reason: Chest Pain) Qty: 30 RF: 0 multivitamin Tablet 1 tab PO QAM RF: 0 aspirin 81 mg tablet,delayed release (DR/EC) 81 mg PO QAM RF: 0 glimepiride 4 mg tablet 4 mg PO QAM RF: 0 diclofenac sodium 1 % gel 4 g TOP BID PRN (Reason: Pain) RF: 0 Discharge Orders: Discharge Order (Routine); Ordered 03/25/21 Ordered By: Zeeshan Samaniego/Other Patient Handouts: High Blood Sugar (Hyperglycemia), Managing Type 2 Diabetes, Diabetes: Meal Planning Admission Data Admit Date/Time: 03/23/21 13:45 Attending Provider: Zeeshan Elizabeth Admit Provider: Zeeshan Elizabeth Primary Care Provider: Katlin Preston. Other Providers: Katlin Preston.
== END 2021-03-25 13:57 | disposition home or self-care (01) | DRG 454 ==
LOC: ASU 06:47 → PACUINP 13:45 → ASUINP 03-24 06:53